=== PATIENT | female | born 1950 | race Caucasian/White ===

== ENCOUNTER → 2023-08-16 13:13 | Outpatient (REF) | payer MEDICARE, OTHER, SELFPAY ==
[2023-08-16 14:48] LABS: ALT (SGPT) 24 U/L (0-35); AST (SGOT) 30 U/L (14-36); Albumin 3.9 g/dl (3.5-5.0); Alkaline Phosphatase 83 U/L (38-126); Blood Urea Nitrogen 23 mg/dl (7-17); Carbon Dioxide 22 mmol/L (22-30); Chloride 109 mmol/L (98-107); Glucose 141 mg/dl (70-99); HDL Cholesterol 47 mg/dl; LDL Cholesterol, Calculated 33 mg/dl; Potassium 4.8 mmol/L (3.5-5.1); Sodium 138 mmol/L (135-145); Total Bilirubin 0.5 mg/dl (0.2-1.3); Total Cholesterol 103 mg/dl (50-199); Total Protein 6.6 g/dl (6.3-8.2); Triglyceride 119 mg/dl (10-149); Very Low Density Lipoprotein 23 mg/dl (0-30); eGFR 59.49
[2023-08-16 15:07] LABS: Free T4 0.81 ng/dl (0.78-2.19)
[2023-08-16 15:21] LABS: TSH 0.17 uIU/ml (0.47-4.68)
[2023-08-17 08:44] LABS: Glycohemoglobin (HgbA1c) 6.7 % (4.0-5.6)
== END ==
LOC: REG 13:13
PROVIDERS: ATTENDING PHYSICIAN Internal Medicine Endocrinology, Diabetes & Metabolism; FAMILY PHYSICIAN Internal Medicine
DX: I10 Essential (primary) hypertension (principal); E11.9 Type 2 diabetes mellitus without complications; E78.5 Hyperlipidemia, unspecified; E05.90 Thyrotoxicosis, unspecified without thyrotoxic crisis or storm; Z79.4 Long term (current) use of insulin
CPT/HCPCS: 36415; 80053; 80061; 83036; 84439; 84443

== ENCOUNTER → 2023-09-12 06:27 | Day surgery (SDC) | payer MEDICARE, OTHER, SELFPAY ==
[2023-09-12 08:01] LABS: Glucose - Point of Care 100 mg/dl (70-99)
== END ==
LOC: GI 06:27
PROVIDERS: ATTENDING PHYSICIAN Internal Medicine Gastroenterology
DX: K52.832 Lymphocytic colitis (principal); K63.5 Polyp of colon; K57.30 Diverticulosis of large intestine without perforation or abscess without bleeding
CPT/HCPCS: 45385; 45380; 88305; 82962

== ENCOUNTER → 2023-11-13 11:47 | Outpatient (REF) | payer MEDICARE, OTHER, SELFPAY ==
[2023-11-13 13:44] LABS: ALT (SGPT) 13 U/L (0-35); AST (SGOT) 18 U/L (14-36); Albumin 4.3 g/dl (3.5-5.0); Alkaline Phosphatase 73 U/L (38-126); Blood Urea Nitrogen 26 mg/dl (7-17); Calcium 10.2 mg/dl (8.4-10.2); Carbon Dioxide 24 mmol/L (22-30); Chloride 103 mmol/L (98-107); Glucose 138 mg/dl (70-99); HDL Cholesterol 74 mg/dl; LDL Cholesterol, Calculated 41 mg/dl; Potassium 4.5 mmol/L (3.5-5.1); Sodium 137 mmol/L (135-145); Total Bilirubin 0.7 mg/dl (0.2-1.3); Total Cholesterol 136 mg/dl (50-199); Triglyceride 108 mg/dl (10-149); Very Low Density Lipoprotein 21 mg/dl (0-30); eGFR > 60.00
[2023-11-13 13:55] LABS: Free T3 2.74 pg/ml (2.77-5.27); Free T4 0.84 ng/dl (0.78-2.19); Glycohemoglobin (HgbA1c) 7.4 % (4.0-5.6)
[2023-11-13 14:00] LABS: Microalbumin/creatinine Ratio 187.4 mg/g
[2023-11-13 14:09] LABS: TSH 0.02 uIU/ml (0.47-4.68)
== END ==
LOC: REG 11:47
PROVIDERS: ATTENDING PHYSICIAN Internal Medicine Endocrinology, Diabetes & Metabolism; FAMILY PHYSICIAN Internal Medicine
DX: E05.90 Thyrotoxicosis, unspecified without thyrotoxic crisis or storm (principal)
CPT/HCPCS: 36415; 80053; 80061; 82043; 82570; 83036; 84439; 84443; 84481

== ENCOUNTER → 2024-01-08 13:15 | Outpatient (REF) | payer MEDICARE, OTHER, SELFPAY ==
[2024-01-08 15:01] LABS: Hemoglobin 13.3 g/dL (12.0-16.0)
== END ==
LOC: RAD 13:15
PROVIDERS: ATTENDING PHYSICIAN Internal Medicine Gastroenterology; FAMILY PHYSICIAN Internal Medicine
DX: K76.0 Fatty (change of) liver, not elsewhere classified (principal); K52.9 Noninfective gastroenteritis and colitis, unspecified
CPT/HCPCS: 36415; 76700; 85018

== ENCOUNTER → 2024-01-24 12:31 | Outpatient (REF) | payer MEDICARE, OTHER, SELFPAY | LOC: REG 12:31 | PROVIDERS: ATTENDING PHYSICIAN Specialist; FAMILY PHYSICIAN Internal Medicine | DX: N39.0 Urinary tract infection, site not specified (principal) | CPT/HCPCS: 87086; 87088; 87186 ==

== ENCOUNTER → 2024-02-03 12:23 | Outpatient (REF) | payer MEDICARE, OTHER, SELFPAY ==
[2024-02-03 15:08] LABS: Free T4 0.88 ng/dl (0.78-2.19)
[2024-02-03 15:23] LABS: TSH 0.03 uIU/ml (0.47-4.68)
== END ==
LOC: REG 12:23
PROVIDERS: ATTENDING PHYSICIAN Internal Medicine Endocrinology, Diabetes & Metabolism; FAMILY PHYSICIAN Internal Medicine
DX: E05.90 Thyrotoxicosis, unspecified without thyrotoxic crisis or storm (principal)
CPT/HCPCS: 36415; 84439; 84443

== ENCOUNTER → 2024-03-23 14:21 | Outpatient (REF) | payer MEDICARE, OTHER, SELFPAY ==
[2024-03-23 15:29] LABS: ALT (SGPT) 19 U/L (0-35); AST (SGOT) 24 U/L (14-36); Albumin 4.2 g/dl (3.5-5.0); Alkaline Phosphatase 75 U/L (38-126); Blood Urea Nitrogen 20 mg/dl (7-17); Calcium 9.9 mg/dl (8.4-10.2); Carbon Dioxide 21 mmol/L (22-30); Chloride 107 mmol/L (98-107); Glucose 129 mg/dl (70-99); HDL Cholesterol 53 mg/dl; LDL Cholesterol, Calculated 51 mg/dl; Potassium 4.9 mmol/L (3.5-5.1); Sodium 143 mmol/L (135-145); Total Bilirubin 0.6 mg/dl (0.2-1.3); Total Cholesterol 126 mg/dl (50-199); Total Protein 6.8 g/dl (6.3-8.2); Triglyceride 111 mg/dl (10-149); Very Low Density Lipoprotein 22 mg/dl (0-30); eGFR 59.12
[2024-03-23 15:38] LABS: Microalbumin, Random Urine 16.6 mg/dl (0.6-1.7); Microalbumin/creatinine Ratio 49.8 mg/g
[2024-03-24 09:29] LABS: Glycohemoglobin (HgbA1c) 6.8 % (4.0-5.6)
== END ==
LOC: REG 14:21
PROVIDERS: ATTENDING PHYSICIAN Internal Medicine
DX: I10 Essential (primary) hypertension (principal); E78.5 Hyperlipidemia, unspecified; E11.9 Type 2 diabetes mellitus without complications
CPT/HCPCS: 36415; 80053; 80061; 82043; 82570; 83036

== ENCOUNTER → 2024-05-04 14:18 | Outpatient (REF) | payer MEDICARE, OTHER, SELFPAY ==
[2024-05-04 15:53] LABS: ALT (SGPT) 19 U/L (0-35); AST (SGOT) 22 U/L (14-36); Albumin 4.3 g/dl (3.5-5.0); Alkaline Phosphatase 76 U/L (38-126); Blood Urea Nitrogen 23 mg/dl (7-17); Carbon Dioxide 22 mmol/L (22-30); Chloride 105 mmol/L (98-107); Glucose 112 mg/dl (70-99); HDL Cholesterol 54 mg/dl; LDL Cholesterol, Calculated 46 mg/dl; Potassium 5.2 mmol/L (3.5-5.1); Sodium 140 mmol/L (135-145); Total Bilirubin 0.5 mg/dl (0.2-1.3); Total Cholesterol 122 mg/dl (50-199); Triglyceride 111 mg/dl (10-149); Very Low Density Lipoprotein 22 mg/dl (0-30); eGFR 52.73
[2024-05-04 15:55] LABS: Microalbumin, Random Urine 1.9 mg/dl (0.6-1.7); Microalbumin/creatinine Ratio 19.9 mg/g
[2024-05-04 16:06] LABS: Free T4 0.73 ng/dl (0.78-2.19)
[2024-05-04 16:20] LABS: TSH 0.05 uIU/ml (0.47-4.68)
[2024-05-05 08:18] LABS: Glycohemoglobin (HgbA1c) 6.9 % (4.0-5.6)
== END ==
LOC: REG 14:18
PROVIDERS: ATTENDING PHYSICIAN Internal Medicine Endocrinology, Diabetes & Metabolism; FAMILY PHYSICIAN Internal Medicine
DX: E05.90 Thyrotoxicosis, unspecified without thyrotoxic crisis or storm (principal); E11.9 Type 2 diabetes mellitus without complications; E11.65 Type 2 diabetes mellitus with hyperglycemia
CPT/HCPCS: 36415; 80053; 80061; 82043; 82570; 83036; 84439; 84443; 84481

== ENCOUNTER → 2024-05-12 08:30 | Outpatient (REF) | payer MEDICARE, OTHER, SELFPAY ==
[2024-05-12 10:43] LABS: FSH 25.3 mIU/ml; Free T4 0.78 ng/dl (0.78-2.19); Prolactin 5.9 ng/ml (3.0-18.6)
[2024-05-12 10:57] LABS: TSH 0.32 uIU/ml (0.47-4.68)
[2024-05-12 10:58] LABS: Estradiol 28.9 pg/ml
[2024-05-12 11:01] LABS: Cortisol, Random 17.2 ug/dl
[2024-05-14 16:30] LABS: IGF-1 Z Score Calculation -0.3; Insulin-like Growth Factor I 79 ng/mL (22-220)
== END ==
LOC: REG 08:30
PROVIDERS: ATTENDING PHYSICIAN Internal Medicine Endocrinology, Diabetes & Metabolism; FAMILY PHYSICIAN Internal Medicine
DX: E05.90 Thyrotoxicosis, unspecified without thyrotoxic crisis or storm (principal)
CPT/HCPCS: 36415; 82533; 82670; 83001; 83002; 84146; 84305; 84439; 84443

== ENCOUNTER → 2024-06-18 14:41 | Outpatient (REF) | payer MEDICARE, OTHER, SELFPAY | LOC: WDC 14:41 | PROVIDERS: ATTENDING PHYSICIAN Internal Medicine | DX: Z78.0 Asymptomatic menopausal state (principal); Z12.31 Encounter for screening mammogram for malignant neoplasm of breast | CPT/HCPCS: 77063; 77067; 77080 ==

== ENCOUNTER → 2024-06-19 11:06 | Outpatient (REF) | payer MEDICARE, OTHER, SELFPAY | LOC: RAD 11:06 | PROVIDERS: ATTENDING PHYSICIAN Family Medicine; FAMILY PHYSICIAN Internal Medicine | DX: R05.3 Chronic cough (principal); J98.8 Other specified respiratory disorders | CPT/HCPCS: 71046 ==

== ENCOUNTER → 2024-06-25 13:04 | Outpatient (REF) | payer MEDICARE, OTHER, SELFPAY ==
[2024-06-25 14:10] LABS: ALT (SGPT) 19 U/L (0-35); AST (SGOT) 23 U/L (14-36); Albumin 4.2 g/dl (3.5-5.0); Alkaline Phosphatase 72 U/L (38-126); Blood Urea Nitrogen 28 mg/dl (7-17); Calcium 9.9 mg/dl (8.4-10.2); Carbon Dioxide 25 mmol/L (22-30); Chloride 106 mmol/L (98-107); Glucose 127 mg/dl (70-99); HDL Cholesterol 67 mg/dl; LDL Cholesterol, Calculated 42 mg/dl; Potassium 4.7 mmol/L (3.5-5.1); Sodium 141 mmol/L (135-145); Total Bilirubin 0.7 mg/dl (0.2-1.3); Total Cholesterol 126 mg/dl (50-199); Total Protein 6.9 g/dl (6.3-8.2); Triglyceride 89 mg/dl (10-149); Very Low Density Lipoprotein 17 mg/dl (0-30); eGFR 36.34
[2024-06-26 10:02] LABS: Glycohemoglobin (HgbA1c) 6.9 % (4.0-5.6)
== END ==
LOC: REG 13:04
PROVIDERS: ATTENDING PHYSICIAN Internal Medicine
DX: E11.65 Type 2 diabetes mellitus with hyperglycemia (principal); E78.5 Hyperlipidemia, unspecified
CPT/HCPCS: 36415; 80053; 80061; 83036

== ENCOUNTER 2024-07-30 13:13 | Emergency (ER) | payer MEDICARE, OTHER, SELFPAY ==
[2024-07-30 13:21] VITALS: BP 106/67
[2024-07-30 14:03] LABS: COVID-19 Antigen Negative (Negative)
[2024-07-30 14:08] LABS: % Basophils 0.4 % (0-2); % Eosinophils 3.3 % (0-6); % Immature Granulocytes 0.4 % (0-0.5); % Lymphocytes 31.4 % (20.5-51.1); % Monocytes 6.3 % (1.7-9.3); % Neutrophils 58.2 % (42.2-75.2); Absolute Eosinophils 0.3 10^3/uL (0-0.7); Absolute Lymphocytes 2.6 10^3/uL (1.2-3.4); Absolute Monocytes 0.5 10^3/uL (0.1-0.6); Absolute Neutrophils 4.8 10^3/uL (1.4-6.5); Hematocrit 41.9 % (37.0-47.0); Hemoglobin 13.9 g/dL (12.0-16.0); Mean Corp Hgb Conc. 33.2 g/dL (33.0-37.0); Mean Corpuscular Hgb 31.4 pg (27.0-31.0); Mean Corpuscular Volume 94.8 fL (81.0-99.0); Mean Platelet Volume 8.8 fL (7.4-10.4); Nucleated Red Blood Cells % 0 %; Platelet Count 312 10^3/uL (130-400); Red Blood Cell Count 4.42 10^6/uL (4.20-5.40); Red Cell Dist. Width 13.3 % (11.5-14.5); White Blood Cell Count 8.3 10^3/uL (4.8-10.8)
[2024-07-30 14:11] LABS: Troponin I < 0.012 ng/ml
[2024-07-30 14:15] LABS: ALT (SGPT) 18 U/L (0-35); AST (SGOT) 27 U/L (14-36); Albumin 4.4 g/dl (3.5-5.0); Alkaline Phosphatase 81 U/L (38-126); Blood Urea Nitrogen 29 mg/dl (7-17); Calcium 9.4 mg/dl (8.4-10.2); Carbon Dioxide 22 mmol/L (22-30); Chloride 104 mmol/L (98-107); Glucose 107 mg/dl (70-99); Potassium 4.5 mmol/L (3.5-5.1); Sodium 139 mmol/L (135-145); Total Bilirubin 0.8 mg/dl (0.2-1.3); Total Protein 7.3 g/dl (6.3-8.2); eGFR 36.34
--- NOTE | 2024-07-30 17:09 | ED.GENMED ---
History of Present Illness
General
Chief Complaint: Breathing Problem
Source: patient
Time Seen by Provider: 07/30/24 16:55
History of Present Illness
History of Present Illness:
73-year-old female presents to the emergency room complaining of cough, fatigue, urinary frequency and burning. Patient sent to the emergency room by her primary. She was prescribed a Z-Cesar but her symptoms have not resolved. Patient states that
her grandchildren both had the flu when she was exposed to them. No nausea or vomiting.
Past History
Past History
ED Past Medical History: Asthma (seasonal), GERD, HTN, Hypercholesterolemia, IDDM, Hypothyroidism and Other (History of dizziness, difficulty with balance or, skin cancer,); Negative Renal failure (Acute kidney insufficiency)
ED Past Surgical History: Orthopedic (laminectomy L3-5), Urological and Other (Partial nephrectomy on the left, part of bladder removed, bunionectomy)
Social History
Tobacco: Former smoker
Alcohol: Occasional
Drug: None
Personal:
Living: with family
Employment: Employed
Family History
Family History: Other (mother and sister (+) stroke)
Phy Exam
Physical Exam
Physical Exam:
General: Awake, Alert, Oriented X3. No acute distress.
Vitals: unremarkable
Head: Atraumatic
Eyes: Pupils equal, EOMI
Throat: Airway intact, no exudates
Neck: Trachea midline
Lungs: X-ray wheezing bilaterally
Heart: Regular rate, no murmurs
Abd: Soft, Nontender, No pulsatile mass
Neuro: Nonfocal
Skin: Warm, dry, no rash
Extremities: pulses equal b/l, no edema
Scores
Heart Failure Risk
Heart Failure Risk Score: Not Applicable
Course
Orders/Labs/Results
Orders:
Orders
07/30/24 13:15
Electrocardiogram (*1) Urgent
Reason for Study: Shortness of Breath
EKG- Treatment ONCE
07/30/24 13:24
Chest [CR Chest - 2 Views ] Urgent
Comment:
Reason For Exam: SOB
07/30/24 13:30
COVID-19 Antigen Urgent
Source: Nasal Swab
Complete Blood Count/With Diff Urgent
Comprehensive Metabolic Panel Urgent
Troponin I Urgent
Influenza A+B Rapid Molecular Urgent
SIMON Source: Nasal Swab
Specimen Description:
07/30/24 17:08
Ipratropium/Albuterol Sulfate [Duoneb] 3 ml INH R NOW STA
07/30/24 17:42
Urinalysis Reflex To Culture Urgent
Date Specimen was Collected: 07/30/24
Time Specimen was Collected: 13:26
Urine Microscopic Reflex Cult Urgent
Urine Culture Urgent
SIMON Source: U
Specimen Description:
Date Specimen was Collected: 07/30/24
Time Specimen was Collected: 13:26
07/30/24 19:11
Cephalexin Monohydrate [Keflex] 500 mg PO NOW STA
Abnormal Lab Results
07/30/24 07/30/24
13:30 17:42
MCH 31.4 H pg
(27.0-31.0)
BUN 29 H mg/dl
(7-17)
Creatinine 1.5 H mg/dL
(0.6-1.0)
Glucose 107 H mg/dl
(70-99)
Ur Occult Blood Reflex Trace A
(Negative)
Urine Bilirubin 1+ A
(Negative)
Leukocyte Esterase Rfl 2+ A
(Negative)
Urine WBC (Reflex) >100 A /HPF
(0-5)
Urine Bacteria (Reflex) Many A
(Negative)
Urine Albumin (Reflex) 1+ A
(Neg - Trace)
07/30/24 13:30
07/30/24 13:30
Vital Signs
Initial and Last Documented VS:
Initial Vital Signs
Temp Pulse Resp BP Pulse Ox
98.7 F 86 18 106/67 98
07/30/24 13:21 07/30/24 13:21 07/30/24 13:21 07/30/24 13:21 07/30/24 13:21
Last Documented Vital Signs
Temp Pulse Resp BP Pulse Ox
97.6 F 86 16 139/95 96
07/30/24 17:39 07/30/24 17:39 07/30/24 17:39 07/30/24 17:39 07/30/24 17:39
MDM/Problems Addressed
Differential Diagnosis Includes:
Influenza, COVID, pneumonia, UTI
MDM/Problems Addressed:
Patient presents with cough, malaise. Symptoms have been persistent for the past few days. She was treated with a Z-Cesar by her primary care provider. In addition the patient is also complaining of some dysuria and frequency. She also has some
suprapubic spasm. From a respiratory infection standpoint the patient is positive for influenza. She received a breathing treatment here which decreased wheezing and she feels much better. Continue using metered-dose inhalers at home. From a
urinary standpoint the patient's urinalysis is suggestive of urinary tract infection with greater than 100 WBCs per high-power field. Will cover with Keflex. Patient has tolerated this in the past. Stable for discharge home
*Radiology
Radiology exam reviewed: preliminary read by ED provider (No acute infiltrate noted on my review of the patient's chest x-ray)
*Pulse Oximetry
Patient hypoxic: no
*EKG
Interpreted by ED Provider?: Yes
Heart Rate: 84
Rate: normal
Rhythm: sinus
Wray: normal axis
Interval: normal interval
QRS Pattern: normal QRS
Ischemia: no ischemia
*Edi Developer Interpretation
Rate: normal
Interpretation: normal
Rhythm: sinus
*Critical Care Note
Total Time (30-74mins, 75-104mins- exclusive of procedures): Not Applicable
ED Attending Note
-
Portions of this chart may have been created with voice recognition software.� Occasional wrong word or��sound alike� substitutions may have occurred due to the inherent limitations of voice recognition software.
Discharge Plan
Departure
Patient Disposition: Home (Routine Discharge)
Date of Disposition: 07/30/24
Time of Disposition: 19:09
Patient with high blood pressure during this ER visit?: No
Condition: Good
Discharge Problem:
Influenza A, Acute UTI
Instructions: Urinary tract infections in adults, Flu in adults - ED discharge instructions, BLOOD PRESSURE
Prescriptions:
New
cephalexin 500 mg capsule
500 mg PO BID 7 Days Qty: 14 0RF
No Action
cholecalciferol (vitamin D3) 2,000 UNITS tablet
1,000 mcg PO DAILY
tretinoin 0.05 % cream
1 applic TOPICAL DAILY
alprazolam 1 mg tablet extended release 24 hr
1 mg PO HS
Patient Comments:
06/24/2023: last filled 06/20/23, 30 tabs for 30 days from [id number]
insulin glargine [Lantus Solostar U-100 Insulin] 100 unit/mL (3 mL) Insulin Pen
22 unit SC HS
metformin 500 mg tablet
500 mg PO DAILY@0800
methenamine hippurate 1 gram tablet
1 g PO BID
bupropion HCl 300 mg tablet extended release 24 hr
300 mg PO DAILY
Saccharomyces boulardii [Probiotic (S.boulardii)] 250 mg Capsule
250 mg PO DAILY
Ozempic 0.25 mg or 0.5 mg (2 mg/3 mL) pen injector
0.5 mg SC FR
losartan 100 mg tablet
100 mg PO DAILY
gabapentin 300 MG capsule
600 mg PO HS
aspirin 81 mg Tablet,Delayed Release (Dr/Ec)
81 mg PO DAILY
ferrous sulfate [FeroSul] 325 mg (65 mg iron) tablet
325 mg PO MOWEFR
atorvastatin 40 mg tablet
40 mg PO QPM
cyanocobalamin (vitamin B-12) 1,000 mcg tablet
1,000 mcg PO DAILY
pantoprazole 40 mg tablet,delayed release (DR/EC)
40 mg PO DAILY
nifedipine 60 mg tablet extended release
60 mg PO DAILY
Referrals:
Maico Fregoso I., DO [Family Provider] -
Interventions
Interventions:
*Risk Screen - Suicide Last Done: 07/30/24 13:21
*General Assessment Last Done: 07/30/24 13:21
*Neglect/Abuse Screening Last Done: 07/30/24 13:21
ED- Fall Risk Assessment Last Done: 07/30/24 19:06
*ED COVID-19 Vaccine History Last Done: 07/30/24 17:41
*Nursing Disposition Last Done: 07/30/24 19:06
ED- Cardiac Assessment Last Done: 07/30/24 17:31
ED- Pulmonary Assessment Last Done: 07/30/24 17:31
Discharge Date and Time
Discharge Date/Time: 07/30/24 19:36
Print Language: [email or web address]
[2024-07-30] MEDS: DUONEB 3 ML INH (17:30)
[2024-07-30 17:37] VITALS: BP 139/95
[2024-07-30 17:39] VITALS: BP 139/95
[2024-07-30 17:58] LABS: Urine Albumin 1+ (Neg - Trace); Urine Bilirubin 1+ (Negative); Urine Character Clear (Clear); Urine Color Yellow; Urine Glucose Negative (Negative); Urine Ketone Negative (Negative); Urine Leukocyte 2+ (Negative); Urine Nitrite Negative (Negative); Urine Occult Blood Trace (Negative); Urine Specific Gravity 1.025 (<1.030); Urine Urobilinogen Negative (Neg - 1+)
[2024-07-30 19:06] LABS: Urine Squamous Cell >30 /LPF (Few)
[2024-07-30 19:07] LABS: Urine Bacteria Many (Negative); Urine Red Blood Cell 0-2 /HPF (0-2); Urine White Cell >100 /HPF (0-5)
[2024-07-30] MEDS: KEFLEX 500 MG PO (19:30)
== END 2024-07-30 19:36 | disposition home or self-care (01) ==
LOC: EMR 13:13
PROVIDERS: Emergency Medicine; EMERGENCY PHYSICIAN Emergency Medicine; FAMILY PHYSICIAN Internal Medicine
DX: J10.1 Influenza due to other identified influenza virus with other respiratory manifestations (principal); N39.0 Urinary tract infection, site not specified; E03.9 Hypothyroidism, unspecified; E11.9 Type 2 diabetes mellitus without complications; E78.00 Pure hypercholesterolemia, unspecified; I10 Essential (primary) hypertension; J45.909 Unspecified asthma, uncomplicated; K21.9 Gastro-esophageal reflux disease without esophagitis; Z79.4 Long term (current) use of insulin; Z85.828 Personal history of other malignant neoplasm of skin; Z87.891 Personal history of nicotine dependence
CPT/HCPCS: 99285; 94640; 71046; 80053; 81003; 81015; 84484; 85025; 87077; 87086; 87502; 87811; 93005

== ENCOUNTER → 2024-09-22 14:20 | Outpatient (REF) | payer MEDICARE, OTHER, SELFPAY | LOC: HWRAD 14:20 | PROVIDERS: ATTENDING PHYSICIAN Physician Assistant; FAMILY PHYSICIAN Internal Medicine | DX: K76.0 Fatty (change of) liver, not elsewhere classified (principal) | CPT/HCPCS: 76700 ==

== ENCOUNTER 2024-10-22 06:18 | Day surgery (SDC) | payer MEDICARE, OTHER, SELFPAY ==
[2024-10-22 08:18] LABS: Glucose - Point of Care 205 mg/dl (70-99)
== END 2024-10-22 09:52 | disposition home or self-care (01) ==
LOC: GI 06:18
PROVIDERS: ATTENDING PHYSICIAN Internal Medicine Gastroenterology
DX: R13.10 Dysphagia, unspecified (principal); R12 Heartburn; K44.9 Diaphragmatic hernia without obstruction or gangrene; K31.89 Other diseases of stomach and duodenum; K29.50 Unspecified chronic gastritis without bleeding
CPT/HCPCS: 43239; 88305; 82962; 88342

== ENCOUNTER → 2024-11-03 13:55 | Outpatient (REF) | payer MEDICARE, OTHER, SELFPAY ==
[2024-11-03 15:39] LABS: ALT (SGPT) 15 U/L (0-35); AST (SGOT) 20 U/L (14-36); Albumin 4.2 g/dl (3.5-5.0); Alkaline Phosphatase 71 U/L (38-126); Blood Urea Nitrogen 25 mg/dl (7-17); Calcium 9.6 mg/dl (8.4-10.2); Carbon Dioxide 24 mmol/L (22-30); Chloride 106 mmol/L (98-107); Glucose 118 mg/dl (70-99); Potassium 5.1 mmol/L (3.5-5.1); Sodium 140 mmol/L (135-145); Total Bilirubin 0.7 mg/dl (0.2-1.3); Total Protein 6.8 g/dl (6.3-8.2); eGFR 47.21
[2024-11-03 15:51] LABS: Lipase 127 U/L (23-300)
[2024-11-04 08:34] LABS: Glycohemoglobin (HgbA1c) 6.9 % (4.0-5.6)
== END ==
LOC: REG 13:55
PROVIDERS: ATTENDING PHYSICIAN Internal Medicine
DX: I10 Essential (primary) hypertension (principal); E78.5 Hyperlipidemia, unspecified; E11.21 Type 2 diabetes mellitus with diabetic nephropathy; N18.31 Chronic kidney disease, stage 3a
CPT/HCPCS: 36415; 80053; 83036; 83690

== ENCOUNTER → 2024-12-08 10:14 | Outpatient (REF) | payer MEDICARE, OTHER, SELFPAY | LOC: RAD 10:14 | PROVIDERS: ATTENDING PHYSICIAN Internal Medicine Gastroenterology; FAMILY PHYSICIAN Internal Medicine | DX: R13.19 Other dysphagia (principal) | CPT/HCPCS: 74221 ==

== ENCOUNTER → 2025-01-13 11:30 | Outpatient (REF) | payer MEDICARE, OTHER, SELFPAY ==
[2025-01-13 18:56] LABS: Urine Character Cloudy (Clear)
[2025-01-13 19:15] LABS: Urine Squamous Cell 0-2 /LPF (Few)
[2025-01-13 19:16] LABS: Urine Red Blood Cell 0-2 /HPF (0-2)
== END ==
LOC: CLAB 11:30
PROVIDERS: ATTENDING PHYSICIAN Specialist
DX: N39.0 Urinary tract infection, site not specified (principal)
CPT/HCPCS: 81003; 81015; 87077; 87086; 87186

== ENCOUNTER → 2025-02-18 13:27 | Outpatient (REF) | payer MEDICARE, OTHER, SELFPAY ==
[2025-02-18 14:36] LABS: ALT (SGPT) 14 U/L (0-35); AST (SGOT) 19 U/L (14-36); Albumin 4.2 g/dl (3.5-5.0); Alkaline Phosphatase 65 U/L (38-126); Blood Urea Nitrogen 27 mg/dl (7-17); Calcium 9.8 mg/dl (8.4-10.2); Carbon Dioxide 26 mmol/L (22-30); Chloride 108 mmol/L (98-107); Glucose 138 mg/dl (70-99); HDL Cholesterol 51 mg/dl; LDL Cholesterol, Calculated 59 mg/dl; Potassium 5.3 mmol/L (3.5-5.1); Sodium 140 mmol/L (135-145); Total Protein 6.8 g/dl (6.3-8.2); Very Low Density Lipoprotein 18 mg/dl (0-30); eGFR 47.21
[2025-02-19 08:57] LABS: Glycohemoglobin (HgbA1c) 6.7 % (4.0-5.6)
== END ==
LOC: REG 13:27
PROVIDERS: ATTENDING PHYSICIAN Internal Medicine
DX: I10 Essential (primary) hypertension (principal); E11.21 Type 2 diabetes mellitus with diabetic nephropathy; N18.32 Chronic kidney disease, stage 3b
CPT/HCPCS: 36415; 80053; 80061; 83036

== ENCOUNTER → 2025-05-19 12:13 | Outpatient (REF) | payer MEDICARE, OTHER, SELFPAY ==
[2025-05-19 14:29] LABS: Glycohemoglobin (HgbA1c) 6.5 % (4.0-5.9)
[2025-05-19 14:35] LABS: ALT (SGPT) 17 U/L (0-35); AST (SGOT) 24 U/L (14-36); Albumin 4.1 g/dl (3.5-5.0); Alkaline Phosphatase 66 U/L (38-126); Blood Urea Nitrogen 19 mg/dl (7-17); Calcium 9.8 mg/dl (8.4-10.2); Carbon Dioxide 28 mmol/L (22-30); Chloride 105 mmol/L (98-107); Glucose 110 mg/dl (70-99); Potassium 4.9 mmol/L (3.5-5.1); Sodium 140 mmol/L (135-145); Total Protein 6.9 g/dl (6.3-8.2); eGFR 58.75
[2025-05-19 14:37] LABS: Microalb - Urine Creatinine 187.200 mg/dl
[2025-05-19 14:39] LABS: Microalbumin, Random Urine 7.7 mg/dl (0.6-1.7)
[2025-05-19 14:53] LABS: Free T3 3.18 pg/ml (2.77-5.27)
[2025-05-19 15:06] LABS: TSH 0.32 uIU/ml (0.47-4.68)
== END ==
LOC: REG 12:13
PROVIDERS: ATTENDING PHYSICIAN Internal Medicine Endocrinology, Diabetes & Metabolism; FAMILY PHYSICIAN Internal Medicine
DX: E11.9 Type 2 diabetes mellitus without complications (principal); E05.90 Thyrotoxicosis, unspecified without thyrotoxic crisis or storm
CPT/HCPCS: 36415; 80053; 82043; 82570; 83036; 84439; 84443; 84481

== ENCOUNTER → 2025-06-01 14:33 | Outpatient (REF) | payer MEDICARE, OTHER, SELFPAY ==
[2025-06-01 15:47] LABS: ALT (SGPT) 16 U/L (0-35); AST (SGOT) 22 U/L (14-36); Albumin 4.2 g/dl (3.5-5.0); Alkaline Phosphatase 61 U/L (38-126); Blood Urea Nitrogen 27 mg/dl (7-17); Calcium 9.5 mg/dl (8.4-10.2); Carbon Dioxide 25 mmol/L (22-30); Chloride 106 mmol/L (98-107); Glucose 89 mg/dl (70-99); HDL Cholesterol 61 mg/dl; LDL Cholesterol, Calculated 59 mg/dl; Potassium 4.8 mmol/L (3.5-5.1); Sodium 136 mmol/L (135-145); Total Protein 7.2 g/dl (6.3-8.2); Very Low Density Lipoprotein 19 mg/dl (0-30); eGFR 47.21
[2025-06-01 16:57] LABS: Microalbumin, Random Urine 7.5 mg/dl (0.6-1.7)
== END ==
LOC: REG 14:33
PROVIDERS: ATTENDING PHYSICIAN Internal Medicine
DX: E11.21 Type 2 diabetes mellitus with diabetic nephropathy (principal); E11.9 Type 2 diabetes mellitus without complications
CPT/HCPCS: 36415; 80053; 80061; 82043; 82570

== ENCOUNTER → 2025-06-09 14:09 | Outpatient (REF) | payer MEDICARE, OTHER, SELFPAY | LOC: RAD 14:09 | PROVIDERS: ATTENDING PHYSICIAN Internal Medicine | DX: I10 Essential (primary) hypertension (principal); R05.1 Acute cough; J98.8 Other specified respiratory disorders | CPT/HCPCS: 71046 ==

== ENCOUNTER → 2025-07-05 13:07 | Outpatient (REF) | payer MEDICARE, OTHER, SELFPAY ==
[2025-07-05 14:26] LABS: Urine Character Clear (Clear)
[2025-07-05 15:00] LABS: Urine Squamous Cell 0-2 /LPF (Few); Urine Urothelial Cell 0-2 /LPF (FEW)
[2025-07-05 15:01] LABS: Urine Red Blood Cell 0-2 /HPF (0-2)
[2025-07-05 15:02] LABS: Urine White Cell 0-2 /HPF (0-5)
== END ==
LOC: REG 13:07
PROVIDERS: ATTENDING PHYSICIAN Specialist; FAMILY PHYSICIAN Internal Medicine
DX: N39.0 Urinary tract infection, site not specified (principal)
CPT/HCPCS: 81003; 81015; 87086